=== PATIENT | male | born 1990 | race Caucasian/White ===

== ENCOUNTER 2016-07-11 18:19 | Inpatient (IN) | payer MEDICAID ==
[~2016-07-11] VITALS: Ht 172.7 cm; Wt 108.2 kg
[~2016-07-11 18:19] MED LIST: DIVA500T69 PO; FLUV50 PO; NALT50 PO; PALI234D IM; TRIH2TAB3 PO
[2016-07-11 18:47] VITALS: BP 120/70
[2016-07-11] MEDS ORDERED: PNEUMOCOCCAL VACCINE POLYVALENT 0.5 ML VIAL [PPSV23] IM ONE (19:30)
[2016-07-11] MEDS: DIVALPROEX SODIUM 500 MG ER TABLET PO SCH (20:32)
[2016-07-11] MEDS: OLANZapine 5 MG RAPDIS TABLET PO SCH (20:32)
[2016-07-11] MEDS: TRIHEXYPHENIDYL HCL 2 MG TABLET PO SCH (20:33)
[2016-07-11] MEDS: ZOLPIDEM TARTRATE 10 MG TABLET PO PRN (22:43)
[2016-07-12 06:36] VITALS: BP 104/64
[2016-07-12 08:08] VITALS: BP 144/57
[2016-07-12 08:09] LABS: BASOPHILS % (AUTO) 0.3 % (0.0-2.0); EOSINOPHILS % (AUTO) 5.4 % (1.0-6.0); HEMATOCRIT 41.6 % (41-53); HEMOGLOBIN 13.8 g/dL (13.5-17.5); LYMPHOCYTES # (AUTO) 2.3 K/uL (1.0-4.8); LYMPHOCYTES % (AUTO) 36.6 % (22.0-44.0); MEAN CORPUSCULAR HEMOGLOBIN 28.6 pg (26.0-34.0); MEAN CORPUSCULAR HGB CONC 33.2 G/dL (31.0-37.0); MEAN CORPUSCULAR VOLUME 86 fL (80-100); MONOCYTES # (AUTO) 0.6 K/uL (0.1-1.0); MONOCYTES % (AUTO) 9.6 % (2.0-9.0); NEUTROPHILS # (AUTO) 3.1 K/uL (1.8-7.7); NEUTROPHILS % (AUTO) 48.1 % (40.0-70.0); PLATELET COUNT (AUTO) 190 K/uL (150-450); RED BLOOD CELL COUNT(AUTO) 4.82 MIL/uL (4.50-5.90); RED CELL DISTRIBUTION WIDTH 14.1 % (11.5-14.5); WHITE BLOOD COUNT (AUTO) 6.4 K/uL (4.5-11.0)
[2016-07-12] MEDS: NALTREXONE HCL 50 MG TABLET PO SCH (08:45)
[2016-07-12] MEDS: FluvoxaMINE MALEATE 50 MG TABLET PO SCH (08:45)
[2016-07-12 08:46] LABS: APPEARANCE,URINE CLEAR (CLEAR); GLUCOSE, URINE (UA) NEGATIVE (NEGATIVE); KETONES,URINE NEGATIVE (NEGATIVE); LEUKOCYTE ESTERASE ,URINE NEGATIVE (NEGATIVE); OCCULT BLOOD,URINE NEGATIVE (NEGATIVE); PROTEIN,URINE NEGATIVE (NEGATIVE)
[2016-07-12] MEDS: TERBINAFINE HCL 1% 30 GM CREAM TP SCH ×2 (08:46→17:24)
[2016-07-12] MEDS: TRIHEXYPHENIDYL HCL 2 MG TABLET PO SCH ×3 (08:46→16:34)
[2016-07-12 08:52] LABS: ADD UA MICROSCOPIC NO
[2016-07-12 09:28] LABS: ALANINE AMINOTRANSFERASE 20 U/L (12-78); ALBUMIN 3.2 g/dL (3.4-5.0); ANION GAP 6 mmol/L (8-16); ASPARTATE AMINOTRANSFERASE 8 U/L (15-37); BILIRUBIN,TOTAL 0.2 mg/dL (0.1-1.0); CALCIUM, TOTAL 8.7 mg/dL (8.8-10.5); CARBON DIOXIDE 31 mmol/L (22-29); CHLORIDE 104 mmol/L (98-107); GLOMERULAR FILTR. RATE CALC > 60 mL/min (>60); POTASSIUM 4.2 mmol/L (3.5-5.1); SODIUM SERUM 141 mmol/L (136-145); TOTAL PROTEIN, SERUM 6.4 g/dL (6.4-8.2); UREA NITROGEN, BLOOD 10 mg/dL (7-18); VALPROIC ACID 43 mcg/mL (50-100)
[2016-07-12] MEDS: TraMADol HCL 50 MG TABLET PO PRN (10:30)
[2016-07-12] MEDS ORDERED: MAGNESIUM HYDROXIDE SUSPENSION 30 ML UDCUP PO PRN (11:00)
[2016-07-12] MEDS ORDERED: LOPERAMIDE HCL 2 MG CAPSULE PO PRN (11:00)
[2016-07-12] MEDS ORDERED: PROMETHAZINE HCL 25 MG TABLET PO PRN (11:00)
[2016-07-12] MEDS ORDERED: GuaiFENesin/D-METHORPHAN [SUGAR-FREE] 200-20MG/10 ML SYRUP UDCUP PO PRN (11:00)
[2016-07-12] MEDS ORDERED: MAG HYDROX/AL HYDROX/SIMETH ES 30 ML SUSPENSION UDCUP PO PRN (11:00)
[2016-07-12 16:04] VITALS: BP 131/64
[2016-07-12] MEDS: THIAMINE HCL 100 MG TABLET PO SCH (16:34)
[2016-07-12] MEDS: LORazepam 2 MG TABLET PO PRN ×2 (16:35→20:35)
[2016-07-12] MEDS: OLANZapine 5 MG RAPDIS TABLET PO PRN (16:35)
[2016-07-12] MEDS: OLANZapine 5 MG RAPDIS TABLET PO SCH (20:33)
[2016-07-12] MEDS: DIVALPROEX SODIUM 500 MG ER TABLET PO SCH (20:33)
[2016-07-13 04:00] VITALS: BP 126/69
[2016-07-13] MEDS: TraMADol HCL 50 MG TABLET PO PRN ×4 (06:53→20:13)
[2016-07-13 08:25] VITALS: BP 109/65
[2016-07-13] MEDS: FOLIC ACID 1 MG TABLET PO SCH (09:46)
[2016-07-13] MEDS: THIAMINE HCL 100 MG TABLET PO SCH ×2 (09:46→16:41)
[2016-07-13] MEDS: CHOLECALCIFEROL (VIT D3) 1,000 UNITS TABLET PO SCH (09:46)
[2016-07-13] MEDS: NALTREXONE HCL 50 MG TABLET PO SCH (09:47)
[2016-07-13] MEDS: TRIHEXYPHENIDYL HCL 2 MG TABLET PO SCH ×3 (09:47→16:41)
[2016-07-13] MEDS: MULTIVITAMINS WITH MINERALS, THERAPEUTIC TABLET PO SCH (09:47)
[2016-07-13] MEDS: FluvoxaMINE MALEATE 50 MG TABLET PO SCH (09:48)
[2016-07-13] MEDS: TERBINAFINE HCL 1% 30 GM CREAM TP SCH ×2 (09:48→16:43)
[2016-07-13 16:21] VITALS: BP 120/68
[2016-07-13] MEDS: ACETAMINOPHEN 325 MG TABLET PO PRN (16:41)
[2016-07-13] MEDS: DIVALPROEX SODIUM 500 MG ER TABLET PO SCH (20:09)
[2016-07-13 20:10] VITALS: BP 111/74
[2016-07-13] MEDS: OLANZapine 5 MG RAPDIS TABLET PO SCH (20:12)
[2016-07-14 06:42] VITALS: BP 113/65
[2016-07-14] MEDS: LORazepam 2 MG TABLET PO PRN ×2 (07:02→16:30)
[2016-07-14] MEDS: TraMADol HCL 50 MG TABLET PO PRN (07:03)
[2016-07-14 08:34] VITALS: BP 130/60
[2016-07-14] MEDS: TRIHEXYPHENIDYL HCL 2 MG TABLET PO SCH ×3 (09:57→16:29)
[2016-07-14] MEDS: MULTIVITAMINS WITH MINERALS, THERAPEUTIC TABLET PO SCH (09:57)
[2016-07-14] MEDS: NALTREXONE HCL 50 MG TABLET PO SCH (09:57)
[2016-07-14] MEDS: FOLIC ACID 1 MG TABLET PO SCH (09:57)
[2016-07-14] MEDS: CHOLECALCIFEROL (VIT D3) 1,000 UNITS TABLET PO SCH (09:57)
[2016-07-14] MEDS: TERBINAFINE HCL 1% 30 GM CREAM TP SCH ×2 (09:58→16:30)
[2016-07-14] MEDS: FluvoxaMINE MALEATE 50 MG TABLET PO SCH (09:58)
[2016-07-14] MEDS: THIAMINE HCL 100 MG TABLET PO SCH ×2 (09:58→16:29)
[2016-07-14 16:06] VITALS: BP 121/63
[2016-07-14] MEDS: HydrOXYzine PAMOATE 50 MG CAPSULE PO PRN (16:30)
[2016-07-14] MEDS: OLANZapine 5 MG RAPDIS TABLET PO SCH (20:44)
[2016-07-14] MEDS: DIVALPROEX SODIUM 500 MG ER TABLET PO SCH (20:44)
[2016-07-15 06:46] VITALS: BP 117/76
[2016-07-15] MEDS: TraMADol HCL 50 MG TABLET PO PRN ×2 (07:02→16:52)
[2016-07-15 08:05] VITALS: BP 126/65
[2016-07-15] MEDS: THIAMINE HCL 100 MG TABLET PO SCH ×2 (09:45→16:50)
[2016-07-15] MEDS: TERBINAFINE HCL 1% 30 GM CREAM TP SCH ×2 (09:45→16:50)
[2016-07-15] MEDS: FluvoxaMINE MALEATE 50 MG TABLET PO SCH (09:45)
[2016-07-15] MEDS: MULTIVITAMINS WITH MINERALS, THERAPEUTIC TABLET PO SCH (09:45)
[2016-07-15] MEDS: NALTREXONE HCL 50 MG TABLET PO SCH (09:45)
[2016-07-15] MEDS: CHOLECALCIFEROL (VIT D3) 1,000 UNITS TABLET PO SCH (09:45)
[2016-07-15] MEDS: TRIHEXYPHENIDYL HCL 2 MG TABLET PO SCH ×3 (09:45→16:50)
[2016-07-15] MEDS: FOLIC ACID 1 MG TABLET PO SCH (09:46)
[2016-07-15] MEDS: ACETAMINOPHEN 325 MG TABLET PO PRN (14:15)
[2016-07-15 16:00] VITALS: BP 102/60
[2016-07-15 16:45] VITALS: BP 128/76
[2016-07-15] MEDS: HydrOXYzine PAMOATE 50 MG CAPSULE PO PRN (16:50)
[2016-07-15] MEDS: LORazepam 2 MG TABLET PO PRN (16:51)
[2016-07-15] MEDS: ZOLPIDEM TARTRATE 10 MG TABLET PO PRN (20:30)
[2016-07-15] MEDS: DIVALPROEX SODIUM 500 MG ER TABLET PO SCH (20:30)
[2016-07-15] MEDS: OLANZapine 5 MG RAPDIS TABLET PO SCH (20:30)
[2016-07-16 05:31] VITALS: BP 116/70
[2016-07-16] MEDS: TraMADol HCL 50 MG TABLET PO PRN ×2 (06:06→12:48)
[2016-07-16 08:05] VITALS: BP 150/96
[2016-07-16] MEDS: MULTIVITAMINS WITH MINERALS, THERAPEUTIC TABLET PO SCH (08:30)
[2016-07-16] MEDS: FluvoxaMINE MALEATE 50 MG TABLET PO SCH (08:30)
[2016-07-16] MEDS: NALTREXONE HCL 50 MG TABLET PO SCH (08:30)
[2016-07-16] MEDS: FOLIC ACID 1 MG TABLET PO SCH (08:30)
[2016-07-16] MEDS: TERBINAFINE HCL 1% 30 GM CREAM TP SCH ×2 (08:30→16:44)
[2016-07-16] MEDS: THIAMINE HCL 100 MG TABLET PO SCH ×2 (08:30→16:43)
[2016-07-16] MEDS: TRIHEXYPHENIDYL HCL 2 MG TABLET PO SCH ×3 (08:30→16:44)
[2016-07-16] MEDS: CHOLECALCIFEROL (VIT D3) 1,000 UNITS TABLET PO SCH (08:30)
[2016-07-16] MEDS: OLANZapine 5 MG RAPDIS TABLET PO PRN (08:31)
[2016-07-16] MEDS: HydrOXYzine PAMOATE 50 MG CAPSULE PO PRN ×2 (08:31→16:44)
[2016-07-16 16:20] VITALS: BP 123/70
[2016-07-16] MEDS: LORazepam 2 MG TABLET PO PRN (16:44)
[2016-07-16] MEDS: DIVALPROEX SODIUM 500 MG ER TABLET PO SCH (20:21)
[2016-07-16] MEDS: ZOLPIDEM TARTRATE 10 MG TABLET PO PRN (20:21)
[2016-07-16] MEDS: OLANZapine 5 MG RAPDIS TABLET PO SCH (20:21)
[2016-07-17 01:17] VITALS: BP 132/62
[2016-07-17] MEDS: TraMADol HCL 50 MG TABLET PO PRN (06:31)
[2016-07-17] MEDS: LORazepam 2 MG TABLET PO PRN ×2 (06:31→16:17)
[2016-07-17 08:36] VITALS: BP 119/68
[2016-07-17] MEDS: NALTREXONE HCL 50 MG TABLET PO SCH (09:50)
[2016-07-17] MEDS: CHOLECALCIFEROL (VIT D3) 1,000 UNITS TABLET PO SCH (09:50)
[2016-07-17] MEDS: TERBINAFINE HCL 1% 30 GM CREAM TP SCH ×2 (09:50→16:19)
[2016-07-17] MEDS: HydrOXYzine PAMOATE 50 MG CAPSULE PO PRN (09:51)
[2016-07-17] MEDS: FOLIC ACID 1 MG TABLET PO SCH (09:51)
[2016-07-17] MEDS: FluvoxaMINE MALEATE 50 MG TABLET PO SCH (09:51)
[2016-07-17] MEDS: MULTIVITAMINS WITH MINERALS, THERAPEUTIC TABLET PO SCH (09:51)
[2016-07-17] MEDS: THIAMINE HCL 100 MG TABLET PO SCH ×2 (09:51→16:17)
[2016-07-17] MEDS: TRIHEXYPHENIDYL HCL 2 MG TABLET PO SCH ×3 (09:51→17:02)
[2016-07-17] MEDS: OLANZapine 5 MG RAPDIS TABLET PO PRN (09:51)
[2016-07-17 13:02] VITALS: BP 115/73
[2016-07-17] MEDS: NAPROXEN 500 MG TABLET PO PRN (13:04)
[2016-07-17 14:04] VITALS: BP 111/71
[2016-07-17 16:05] VITALS: BP 110/74
[2016-07-17] MEDS: DIVALPROEX SODIUM 500 MG ER TABLET PO SCH (20:33)
[2016-07-17] MEDS: OLANZapine 5 MG RAPDIS TABLET PO SCH (20:33)
[2016-07-18 01:20] VITALS: BP 108/62
[2016-07-18 08:05] VITALS: BP 104/65
[2016-07-18] MEDS: FluvoxaMINE MALEATE 50 MG TABLET PO SCH (09:21)
[2016-07-18] MEDS: TERBINAFINE HCL 1% 30 GM CREAM TP SCH ×2 (09:21→17:00)
[2016-07-18] MEDS: NALTREXONE HCL 50 MG TABLET PO SCH (09:21)
[2016-07-18] MEDS: CHOLECALCIFEROL (VIT D3) 1,000 UNITS TABLET PO SCH (09:22)
[2016-07-18] MEDS: TRIHEXYPHENIDYL HCL 2 MG TABLET PO SCH ×3 (09:22→17:00)
[2016-07-18] MEDS: MULTIVITAMINS WITH MINERALS, THERAPEUTIC TABLET PO SCH (09:22)
[2016-07-18] MEDS: FOLIC ACID 1 MG TABLET PO SCH (09:22)
[2016-07-18] MEDS: LORazepam 2 MG TABLET PO PRN ×3 (09:22→21:01)
[2016-07-18] MEDS: THIAMINE HCL 100 MG TABLET PO SCH ×2 (09:22→16:57)
[2016-07-18] MEDS: OLANZapine 5 MG RAPDIS TABLET PO PRN (09:22)
[2016-07-18 13:33] VITALS: BP 144/80
[2016-07-18] MEDS: NAPROXEN 500 MG TABLET PO PRN (13:35)
[2016-07-18 14:35] VITALS: BP 135/76
[2016-07-18 16:06] VITALS: BP 135/80
[2016-07-18] MEDS ORDERED: OLANZapine 10 MG RAPDIS TABLET PO SCH (21:00)
[2016-07-18] MEDS: DIVALPROEX SODIUM 500 MG ER TABLET PO SCH (21:00)
[2016-07-18] MEDS: ZOLPIDEM TARTRATE 10 MG TABLET PO PRN (21:01)
[2016-07-19 08:05] VITALS: BP 136/68
[2016-07-19] MEDS ORDERED: FluvoxaMINE MALEATE 50 MG TABLET PO SCH (09:00)
[2016-07-19] MEDS: NALTREXONE HCL 50 MG TABLET PO SCH (09:52)
[2016-07-19] MEDS: TRIHEXYPHENIDYL HCL 2 MG TABLET PO SCH ×3 (09:52→16:33)
[2016-07-19] MEDS: CHOLECALCIFEROL (VIT D3) 1,000 UNITS TABLET PO SCH (09:52)
[2016-07-19] MEDS: FOLIC ACID 1 MG TABLET PO SCH (09:52)
[2016-07-19] MEDS: THIAMINE HCL 100 MG TABLET PO SCH ×2 (09:52→16:33)
[2016-07-19] MEDS: MULTIVITAMINS WITH MINERALS, THERAPEUTIC TABLET PO SCH (09:52)
[2016-07-19] MEDS: NAPROXEN 500 MG TABLET PO PRN (09:53)
[2016-07-19] MEDS: TERBINAFINE HCL 1% 30 GM CREAM TP SCH ×2 (09:54→17:09)
[2016-07-19] MEDS ORDERED: TRIH2TAB3 PO (13:44)
[2016-07-19] MEDS ORDERED: OLAN10TA22 PO (13:44)
[2016-07-19] MEDS ORDERED: NALT50 PO (13:44)
[2016-07-19] MEDS ORDERED: DIVA500T69 PO (13:44)
[2016-07-19] MEDS ORDERED: HALOPERIDOL 5 MG TABLET PO PRN (14:45)
[2016-07-19 16:21] VITALS: BP 126/69
[2016-07-19] MEDS: LORazepam 2 MG TABLET PO PRN ×2 (16:33→20:38)
[2016-07-19] MEDS: DIVALPROEX SODIUM 500 MG ER TABLET PO SCH (20:38)
[2016-07-19] MEDS: ZOLPIDEM TARTRATE 10 MG TABLET PO PRN (20:38)
[2016-07-19] MEDS ORDERED: HALOPERIDOL 10 MG TABLET PO SCH (21:00)
[2016-07-20 06:39] VITALS: BP 147/72
[2016-07-20] MEDS: NAPROXEN 500 MG TABLET PO PRN (06:54)
[2016-07-20 08:05] VITALS: BP 115/63
[2016-07-20] MEDS: NALTREXONE HCL 50 MG TABLET PO SCH (09:10)
[2016-07-20] MEDS: TRIHEXYPHENIDYL HCL 2 MG TABLET PO SCH ×2 (09:10→12:28)
[2016-07-20] MEDS: LORazepam 2 MG TABLET PO PRN (09:10)
[2016-07-20] MEDS: FOLIC ACID 1 MG TABLET PO SCH (09:10)
[2016-07-20] MEDS: MULTIVITAMINS WITH MINERALS, THERAPEUTIC TABLET PO SCH (09:10)
[2016-07-20] MEDS: CHOLECALCIFEROL (VIT D3) 1,000 UNITS TABLET PO SCH (09:10)
[2016-07-20] MEDS: THIAMINE HCL 100 MG TABLET PO SCH (09:10)
[2016-07-20] MEDS: TERBINAFINE HCL 1% 30 GM CREAM TP SCH (09:11)
[2016-07-20] MEDS ORDERED: VITAD1000 PO (09:31)
[2016-07-20] MEDS ORDERED: OLANZapine 5 MG RAPDIS TABLET PO PRN (11:15)
[2016-07-20] MEDS ORDERED: OLANZapine 10 MG RAPDIS TABLET PO SCH (21:00)
== END 2016-07-20 14:40 | disposition home or self-care (01) | DRG 750 ==
LOC: EDSTATUS 18:40 → B3A 19:17
PROVIDERS: ADMIT Psychiatry & Neurology Psychiatry; ATTEND Psychiatry & Neurology Psychiatry
PROC: 3E0234Z Introduction of Serum, Toxoid and Vaccine into Muscle, Percutaneous Approach (ICD-10-PCS; principal; 2016-07-12)
DX: F20.0 Paranoid schizophrenia (principal); R45.851 Suicidal ideations; E55.9 Vitamin D deficiency, unspecified; F17.200 Nicotine dependence, unspecified, uncomplicated; E66.9 Obesity, unspecified; B35.3 Tinea pedis; G89.29 Other chronic pain; M54.5 Low back pain; G47.00 Insomnia, unspecified; Z72.89 Other problems related to lifestyle; Z71.41 Alcohol abuse counseling and surveillance of alcoholic; Z71.6 Tobacco abuse counseling; Z68.36 Body mass index [BMI] 36.0-36.9, adult; Z91.19 Patient's noncompliance with other medical treatment and regimen; Z65.3 Problems related to other legal circumstances; Z23 Encounter for immunization
CPT/HCPCS: 80307; 87081; 90471

== ENCOUNTER 2016-07-23 08:38 | Inpatient (IN) | payer MEDICAID ==
[~2016-07-23] VITALS: Ht 172.7 cm; Wt 108.1 kg
[~2016-07-23 08:38] MED LIST changes: -FLUV50 PO; +OLAN10TA22 PO; -PALI234D IM; +VITAD1000 PO
[2016-07-23 13:07] VITALS: BP 148/86
[2016-07-23] MEDS: TRIHEXYPHENIDYL HCL 2 MG TABLET PO SCH ×2 (13:39→16:44)
[2016-07-23] MEDS: LORazepam 2 MG TABLET PO PRN ×2 (13:40→17:56)
[2016-07-23] MEDS: HALOPERIDOL 5 MG TABLET PO PRN ×2 (13:40→17:56)
[2016-07-23 16:00] VITALS: BP 131/73
[2016-07-23] MEDS: ZOLPIDEM TARTRATE 10 MG TABLET PO PRN (20:37)
[2016-07-23] MEDS: DIVALPROEX SODIUM 500 MG ER TABLET PO SCH (20:37)
[2016-07-23] MEDS ORDERED: HALOPERIDOL 10 MG TABLET PO SCH (21:00)
[2016-07-24 08:05] LABS: BASOPHILS # (AUTO) 0.03 K/uL (0.00-0.20); BASOPHILS % (AUTO) 0.4 % (0.0-2.0); EOSINOPHILS # (AUTO) 0.31 K/uL (0.00-0.70); EOSINOPHILS % (AUTO) 4.13 % (1.0-6.0); HEMATOCRIT 43.2 % (41-53); HEMOGLOBIN 14.1 g/dL (13.5-17.5); LYMPHOCYTES # (AUTO) 2.6 K/uL (1.0-4.8); LYMPHOCYTES % (AUTO) 34.9 % (22.0-44.0); MEAN CORPUSCULAR HEMOGLOBIN 28.2 pg (26.0-34.0); MEAN CORPUSCULAR HGB CONC 32.7 G/dL (31.0-37.0); MEAN CORPUSCULAR VOLUME 86 fL (80-100); MONOCYTES # (AUTO) 0.7 K/uL (0.1-1.0); MONOCYTES % (AUTO) 8.8 % (2.0-9.0); NEUTROPHILS # (AUTO) 3.9 K/uL (1.8-7.7); NEUTROPHILS % (AUTO) 51.8 % (40.0-70.0); PLATELET COUNT (AUTO) 187 K/uL (150-450); RED BLOOD CELL COUNT(AUTO) 5.02 MIL/uL (4.50-5.90); RED CELL DISTRIBUTION WIDTH 14.5 % (11.5-14.5); WHITE BLOOD COUNT (AUTO) 7.5 K/uL (4.5-11.0)
[2016-07-24 08:24] VITALS: BP 119/63
[2016-07-24 08:41] LABS: APPEARANCE,URINE CLEAR (CLEAR); GLUCOSE, URINE (UA) NEGATIVE (NEGATIVE); KETONES,URINE NEGATIVE (NEGATIVE); LEUKOCYTE ESTERASE ,URINE NEGATIVE (NEGATIVE); OCCULT BLOOD,URINE NEGATIVE (NEGATIVE); PROTEIN,URINE NEGATIVE (NEGATIVE)
[2016-07-24 08:43] LABS: ALANINE AMINOTRANSFERASE 40 U/L (12-78); ALBUMIN 3.5 g/dL (3.4-5.0); ANION GAP 9 mmol/L (8-16); ASPARTATE AMINOTRANSFERASE 45 U/L (15-37); BILIRUBIN,TOTAL 0.3 mg/dL (0.1-1.0); CALCIUM, TOTAL 8.6 mg/dL (8.8-10.5); CARBON DIOXIDE 27 mmol/L (22-29); CHLORIDE 104 mmol/L (98-107); CREATININE 0.78 mg/dL (0.60-1.30); GLOMERULAR FILTR. RATE CALC > 60 mL/min (>60); POTASSIUM 4.2 mmol/L (3.5-5.1); SODIUM SERUM 140 mmol/L (136-145); TOTAL PROTEIN, SERUM 7.1 g/dL (6.4-8.2); UREA NITROGEN, BLOOD 17 mg/dL (7-18)
[2016-07-24 08:43] LABS: ADD UA MICROSCOPIC NO
[2016-07-24] MEDS: NALTREXONE HCL 50 MG TABLET PO SCH (09:23)
[2016-07-24] MEDS: TRIHEXYPHENIDYL HCL 2 MG TABLET PO SCH ×3 (09:23→16:46)
[2016-07-24] MEDS: LORazepam 2 MG TABLET PO PRN (09:23)
[2016-07-24] MEDS ORDERED: CloNIDine HCL 0.1 MG TABLET PO PRN (09:30)
[2016-07-24] MEDS ORDERED: ONDANSETRON HCL 4 MG TABLET PO PRN (09:30)
[2016-07-24] MEDS ORDERED: ALBUTEROL SULFATE HFA 90 MCG/PUFF 8 GM INHALER IH PRN (09:30)
[2016-07-24] MEDS ORDERED: BENZOCAINE/MENTHOL LOZENGE MM PRN (09:30)
[2016-07-24] MEDS ORDERED: MAGNESIUM HYDROXIDE SUSPENSION 30 ML UDCUP PO PRN (09:30)
[2016-07-24] MEDS ORDERED: MAG HYDROX/AL HYDROX/SIMETH ES 30 ML SUSPENSION UDCUP PO PRN (09:30)
[2016-07-24] MEDS ORDERED: PETROLATUM,WHITE 71 GM JELLY TP PRN (09:30)
[2016-07-24] MEDS ORDERED: LOPERAMIDE HCL 2 MG CAPSULE PO PRN (09:30)
[2016-07-24] MEDS ORDERED: BACITRACIN 28.4 GM OINTMENT TP PRN (09:30)
[2016-07-24] MEDS: ACETAMINOPHEN 325 MG TABLET PO PRN (13:00)
[2016-07-24 13:01] VITALS: BP 132/77
[2016-07-24 14:00] VITALS: BP 129/71
[2016-07-24 16:09] VITALS: BP 124/65
[2016-07-24] MEDS: DIVALPROEX SODIUM 500 MG ER TABLET PO SCH (20:47)
[2016-07-24] MEDS ORDERED: HALOPERIDOL 10 MG TABLET PO SCH (21:00)
[2016-07-25 07:12] VITALS: BP 126/88
[2016-07-25 08:09] VITALS: BP 127/76
[2016-07-25] MEDS: TRIHEXYPHENIDYL HCL 2 MG TABLET PO SCH ×3 (08:29→16:43)
[2016-07-25] MEDS: NALTREXONE HCL 50 MG TABLET PO SCH (08:29)
[2016-07-25] MEDS: ACETAMINOPHEN 325 MG TABLET PO PRN (08:30)
[2016-07-25 16:41] VITALS: BP 131/82
[2016-07-25] MEDS: LORazepam 2 MG TABLET PO PRN (16:43)
[2016-07-25] MEDS: DIVALPROEX SODIUM 500 MG ER TABLET PO SCH (20:39)
[2016-07-25] MEDS: HALOPERIDOL 10 MG TABLET PO SCH (20:39)
[2016-07-26 07:21] VITALS: BP 132/78
[2016-07-26] MEDS: NALTREXONE HCL 50 MG TABLET PO SCH (08:45)
[2016-07-26] MEDS: TRIHEXYPHENIDYL HCL 2 MG TABLET PO SCH ×3 (08:45→16:15)
[2016-07-26 08:47] VITALS: BP 133/84
[2016-07-26] MEDS: IBUPROFEN 600 MG TABLET PO PRN ×2 (08:53→17:56)
[2016-07-26] MEDS: DICLOFENAC SODIUM 1% 100 GM GEL [2GM] TP SCH ×2 (10:45→16:19)
[2016-07-26 13:15] VITALS: BP 119/72
[2016-07-26] MEDS: TraMADol HCL 50 MG TABLET PO PRN ×2 (13:17→20:23)
[2016-07-26] MEDS ORDERED: NALT50 PO (14:56)
[2016-07-26] MEDS ORDERED: DIVA500T52 PO (14:56)
[2016-07-26] MEDS ORDERED: HALO10 PO (14:56)
[2016-07-26 16:12] VITALS: BP 120/74
[2016-07-26] MEDS: LORazepam 2 MG TABLET PO PRN (16:15)
[2016-07-26 17:56] VITALS: BP 124/77
[2016-07-26 20:23] VITALS: BP 122/75
[2016-07-26] MEDS: HALOPERIDOL 10 MG TABLET PO SCH (20:23)
[2016-07-26] MEDS: DIVALPROEX SODIUM 500 MG ER TABLET PO SCH (20:23)
[2016-07-26] MEDS: ZOLPIDEM TARTRATE 10 MG TABLET PO PRN (21:02)
[2016-07-27 07:03] VITALS: BP 125/68
[2016-07-27] MEDS: TraMADol HCL 50 MG TABLET PO PRN ×2 (07:08→13:04)
[2016-07-27 08:33] VITALS: BP 128/71
[2016-07-27] MEDS: DICLOFENAC SODIUM 1% 100 GM GEL [2GM] TP SCH (08:36)
[2016-07-27] MEDS: NALTREXONE HCL 50 MG TABLET PO SCH (08:36)
[2016-07-27] MEDS: TRIHEXYPHENIDYL HCL 2 MG TABLET PO SCH ×2 (08:36→13:04)
[2016-07-27 13:04] VITALS: BP 125/76
== END 2016-07-27 13:15 | disposition home or self-care (01) | DRG 750 ==
LOC: B3A 12:40
PROVIDERS: ADMIT Psychiatry & Neurology Psychiatry; ATTEND Psychiatry & Neurology Psychiatry
PROC: GZ51ZZZ Individual Psychotherapy, Behavioral (ICD-10-PCS; principal; 2016-07-23)
DX: F20.0 Paranoid schizophrenia (principal); Z91.14 Patient's other noncompliance with medication regimen; E66.9 Obesity, unspecified; F17.210 Nicotine dependence, cigarettes, uncomplicated; G89.29 Other chronic pain; M54.5 Low back pain; Z72.89 Other problems related to lifestyle; Z71.6 Tobacco abuse counseling; Z71.41 Alcohol abuse counseling and surveillance of alcoholic; Z68.36 Body mass index [BMI] 36.0-36.9, adult; F25.0 Schizoaffective disorder, bipolar type
CPT/HCPCS: 80173; 87081

== ENCOUNTER 2016-11-02 18:34 | Inpatient (IN) | payer MEDICAID ==
[~2016-11-02] VITALS: Ht 172.7 cm; Wt 98.4 kg
[~2016-11-02 18:34] MED LIST changes: +DIVA500T52 PO; -DIVA500T69 PO; +HALO10 PO; -OLAN10TA22 PO; -TRIH2TAB3 PO; -VITAD1000 PO
[2016-11-02] MEDS ORDERED: ZOLPIDEM TARTRATE 10 MG TABLET PO PRN (21:15)
[2016-11-02 21:35] VITALS: BP 122/65
[2016-11-02] MEDS: HALOPERIDOL 5 MG TABLET PO PRN (21:45)
[2016-11-02] MEDS: LORazepam 2 MG TABLET PO PRN (21:45)
[2016-11-02 21:54] VITALS: BP 118/68
[2016-11-02 22:12] VITALS: BP 118/68
[2016-11-03 06:08] VITALS: BP 102/67
[2016-11-03 08:04] VITALS: BP 110/70
[2016-11-03 08:57] LABS: BASOPHILS # (AUTO) 0.03 K/uL (0.00-0.20); BASOPHILS % (AUTO) 0.4 % (0.0-2.0); EOSINOPHILS # (AUTO) 0.27 K/uL (0.00-0.70); EOSINOPHILS % (AUTO) 4.19 % (1.0-6.0); HEMATOCRIT 38.7 % (41-53); HEMOGLOBIN 12.7 g/dL (13.5-17.5); LYMPHOCYTES # (AUTO) 2.8 K/uL (1.0-4.8); LYMPHOCYTES % (AUTO) 42.4 % (22.0-44.0); MEAN CORPUSCULAR HEMOGLOBIN 28.6 pg (26.0-34.0); MEAN CORPUSCULAR HGB CONC 32.8 G/dL (31.0-37.0); MEAN CORPUSCULAR VOLUME 87 fL (80-100); MONOCYTES # (AUTO) 0.8 K/uL (0.1-1.0); MONOCYTES % (AUTO) 11.4 % (2.0-9.0); NEUTROPHILS # (AUTO) 2.7 K/uL (1.8-7.7); NEUTROPHILS % (AUTO) 41.5 % (40.0-70.0); PLATELET COUNT (AUTO) 198 K/uL (150-450); RED BLOOD CELL COUNT(AUTO) 4.44 MIL/uL (4.50-5.90); RED CELL DISTRIBUTION WIDTH 13.7 % (11.5-14.5); WHITE BLOOD COUNT (AUTO) 6.5 K/uL (4.5-11.0)
[2016-11-03] MEDS ORDERED: BENZOCAINE/MENTHOL LOZENGE MM PRN (09:00)
[2016-11-03] MEDS ORDERED: ACETAMINOPHEN 325 MG TABLET PO PRN (09:00)
[2016-11-03] MEDS ORDERED: BACITRACIN 28.4 GM OINTMENT TP PRN (09:00)
[2016-11-03] MEDS ORDERED: ALBUTEROL SULFATE HFA 90 MCG/PUFF 8 GM INHALER IH PRN (09:00)
[2016-11-03] MEDS ORDERED: PETROLATUM,WHITE 71 GM JELLY TP PRN (09:00)
[2016-11-03] MEDS ORDERED: MAGNESIUM HYDROXIDE SUSPENSION 30 ML UDCUP PO PRN (09:00)
[2016-11-03] MEDS ORDERED: IBUPROFEN 600 MG TABLET PO PRN (09:00)
[2016-11-03] MEDS ORDERED: LOPERAMIDE HCL 2 MG CAPSULE PO PRN (09:00)
[2016-11-03] MEDS ORDERED: MAG HYDROX/AL HYDROX/SIMETH ES 30 ML SUSPENSION UDCUP PO PRN (09:00)
[2016-11-03] MEDS ORDERED: CloNIDine HCL 0.1 MG TABLET PO PRN (09:00)
[2016-11-03] MEDS ORDERED: ONDANSETRON HCL 4 MG TABLET PO PRN (09:00)
[2016-11-03 09:15] LABS: ALANINE AMINOTRANSFERASE 28 U/L (12-78); ALBUMIN 3.4 g/dL (3.4-5.0); ANION GAP 8 mmol/L (8-16); ASPARTATE AMINOTRANSFERASE 15 U/L (15-37); BILIRUBIN,TOTAL 0.3 mg/dL (0.1-1.0); CALCIUM, TOTAL 8.6 mg/dL (8.8-10.5); CARBON DIOXIDE 30 mmol/L (22-29); CHLORIDE 105 mmol/L (98-107); CREATININE 0.76 mg/dL (0.60-1.30); GLOMERULAR FILTR. RATE CALC > 60 mL/min (>60); POTASSIUM 3.7 mmol/L (3.5-5.1); SODIUM SERUM 143 mmol/L (136-145); TOTAL PROTEIN, SERUM 6.3 g/dL (6.4-8.2); UREA NITROGEN, BLOOD 14 mg/dL (7-18)
[2016-11-03 09:30] LABS: APPEARANCE,URINE TURBID (CLEAR); GLUCOSE, URINE (UA) NEGATIVE (NEGATIVE); KETONES,URINE NEGATIVE (NEGATIVE); LEUKOCYTE ESTERASE ,URINE NEGATIVE (NEGATIVE); OCCULT BLOOD,URINE NEGATIVE (NEGATIVE); PROTEIN,URINE NEGATIVE (NEGATIVE)
[2016-11-03 09:35] LABS: ADD UA MICROSCOPIC NO
[2016-11-03] MEDS ORDERED: DICLOFENAC SODIUM 1% 100 GM GEL [2GM] TP PRN (10:00)
[2016-11-03] MEDS: CHOLECALCIFEROL (VIT D3) 1,000 UNITS TABLET PO SCH (10:13)
[2016-11-03] MEDS: LORazepam 2 MG TABLET PO PRN (10:14)
[2016-11-03] MEDS: HALOPERIDOL 5 MG TABLET PO PRN (10:14)
[2016-11-03 16:00] VITALS: BP 118/68
[2016-11-03] MEDS: HALOPERIDOL 5 MG TABLET PO SCH (17:12)
[2016-11-04 06:13] VITALS: BP 121/67
[2016-11-04 08:04] VITALS: BP 124/57
[2016-11-04] MEDS: CHOLECALCIFEROL (VIT D3) 1,000 UNITS TABLET PO SCH (08:36)
[2016-11-04] MEDS: HALOPERIDOL 5 MG TABLET PO SCH ×2 (08:36→16:52)
[2016-11-04 16:08] VITALS: BP 123/71
[2016-11-04] MEDS: LORazepam 2 MG TABLET PO PRN (16:52)
[2016-11-05 06:41] VITALS: BP 130/66
[2016-11-05 07:30] VITALS: BP 149/110
[2016-11-05] MEDS ORDERED: LORazepam 2 MG/ML VIAL IM ONE (07:40)
[2016-11-05 07:45] VITALS: BP 134/73
[2016-11-05] MEDS ORDERED: LORazepam 2 MG/ML VIAL ONE (07:57)
[2016-11-05 08:00] VITALS: BP 144/105
[2016-11-05] MEDS: HALOPERIDOL 5 MG TABLET PO SCH ×2 (09:00→16:56)
[2016-11-05] MEDS: CHOLECALCIFEROL (VIT D3) 1,000 UNITS TABLET PO SCH (09:00)
[2016-11-05 16:00] VITALS: BP 119/86
[2016-11-05] MEDS: LORazepam 2 MG TABLET PO PRN (16:56)
[2016-11-06 06:10] VITALS: BP 102/68
[2016-11-06 08:38] VITALS: BP 112/76
[2016-11-06] MEDS: CHOLECALCIFEROL (VIT D3) 1,000 UNITS TABLET PO SCH (09:26)
[2016-11-06] MEDS: HALOPERIDOL 5 MG TABLET PO SCH ×2 (09:26→17:05)
[2016-11-06] MEDS: BENZTROPINE MESYLATE 2 MG TABLET PO SCH ×2 (09:26→17:05)
[2016-11-06] MEDS: LORazepam 2 MG TABLET PO PRN ×2 (09:29→17:05)
[2016-11-06 16:32] VITALS: BP 107/64
[2016-11-07 07:01] VITALS: BP 113/58
[2016-11-07 08:04] VITALS: BP 108/67
[2016-11-07] MEDS: LORazepam 2 MG TABLET PO PRN ×2 (09:36→16:52)
[2016-11-07] MEDS: HALOPERIDOL 5 MG TABLET PO SCH ×2 (09:36→16:52)
[2016-11-07] MEDS: BENZTROPINE MESYLATE 2 MG TABLET PO SCH ×2 (09:36→16:52)
[2016-11-07] MEDS: CHOLECALCIFEROL (VIT D3) 1,000 UNITS TABLET PO SCH (09:36)
[2016-11-07] MEDS: FLUoxetine HCL 20 MG CAPSULE PO SCH (09:36)
[2016-11-07 16:00] VITALS: BP 111/70
[2016-11-08 06:10] VITALS: BP 102/61
[2016-11-08 08:14] VITALS: BP 121/68
[2016-11-08] MEDS: CHOLECALCIFEROL (VIT D3) 1,000 UNITS TABLET PO SCH (08:49)
[2016-11-08] MEDS: LORazepam 2 MG TABLET PO PRN ×2 (08:49→16:07)
[2016-11-08] MEDS: FLUoxetine HCL 20 MG CAPSULE PO SCH (08:49)
[2016-11-08] MEDS: BENZTROPINE MESYLATE 2 MG TABLET PO SCH ×2 (08:49→16:06)
[2016-11-08] MEDS: HALOPERIDOL 5 MG TABLET PO SCH ×2 (08:49→16:07)
[2016-11-08 16:00] VITALS: BP 114/71
[2016-11-09 06:06] VITALS: BP 122/75
[2016-11-09 08:04] VITALS: BP 104/62
[2016-11-09] MEDS: FLUoxetine HCL 20 MG CAPSULE PO SCH (08:45)
[2016-11-09] MEDS: HALOPERIDOL 5 MG TABLET PO SCH (08:45)
[2016-11-09] MEDS: CHOLECALCIFEROL (VIT D3) 1,000 UNITS TABLET PO SCH (08:45)
[2016-11-09] MEDS: LORazepam 2 MG TABLET PO PRN (08:45)
[2016-11-09] MEDS: BENZTROPINE MESYLATE 2 MG TABLET PO SCH (08:46)
[2016-11-09] MEDS ORDERED: BENZ2TAB10 PO (10:08)
[2016-11-09] MEDS ORDERED: HALO5 PO (10:08)
[2016-11-09] MEDS ORDERED: FLUO-191 PO (10:08)
== END 2016-11-09 14:14 | disposition home or self-care (01) | DRG 750 ==
LOC: B3A 21:12 → EDSTATUS 21:24
PROVIDERS: ADMIT Psychiatry & Neurology Psychiatry; ATTEND Psychiatry & Neurology Psychiatry
DX: F20.0 Paranoid schizophrenia (principal); F15.20 Other stimulant dependence, uncomplicated; Z59.0 Homelessness; I47.1 Supraventricular tachycardia; E58 Dietary calcium deficiency; M54.5 Low back pain; Z72.0 Tobacco use; G47.00 Insomnia, unspecified; K59.00 Constipation, unspecified; E66.9 Obesity, unspecified; D64.9 Anemia, unspecified; Z68.33 Body mass index [BMI] 33.0-33.9, adult
CPT/HCPCS: J2060

== ENCOUNTER 2017-02-20 12:25 | Inpatient (IN) | payer MEDICAID, OTHER ==
[~2017-02-20] VITALS: Ht 172.7 cm; Wt 96.6 kg
[~2017-02-20 12:25] MED LIST changes: +BENZ2TAB10 PO; +CHOL100034 PO; -DIVA500T52 PO; +FLUO-191 PO; -HALO10 PO; +HALO5 PO; -NALT50 PO
[2017-02-20 12:53] LABS: BASOPHILS # (AUTO) 0.04 K/uL (0.00-0.20); BASOPHILS % (AUTO) 0.5 % (0.0-2.0); EOSINOPHILS # (AUTO) 0.25 K/uL (0.00-0.70); EOSINOPHILS % (AUTO) 3.17 % (1.0-6.0); HEMATOCRIT 44.3 % (41-53); LYMPHOCYTES # (AUTO) 2.6 K/uL (1.0-4.8); LYMPHOCYTES % (AUTO) 32.3 % (22.0-44.0); MEAN CORPUSCULAR HEMOGLOBIN 28.8 pg (26.0-34.0); MEAN CORPUSCULAR HGB CONC 33.8 G/dL (31.0-37.0); MEAN CORPUSCULAR VOLUME 85 fL (80-100); MONOCYTES # (AUTO) 0.7 K/uL (0.1-1.0); MONOCYTES % (AUTO) 8.8 % (2.0-9.0); NEUTROPHILS # (AUTO) 4.4 K/uL (1.8-7.7); NEUTROPHILS % (AUTO) 55.3 % (40.0-70.0); PLATELET COUNT (AUTO) 233 K/uL (150-450); RED CELL DISTRIBUTION WIDTH 13.9 % (11.5-14.5)
[2017-02-20 13:03] LABS: ANION GAP 9 mmol/L (8-16); CALCIUM, TOTAL 8.8 mg/dL (8.8-10.5); CARBON DIOXIDE 31 mmol/L (22-29); CHLORIDE 102 mmol/L (98-107); CREATININE 0.79 mg/dL (0.60-1.30); GLOMERULAR FILTR. RATE CALC > 60 mL/min (>60); POTASSIUM 3.4 mmol/L (3.5-5.1); SODIUM SERUM 142 mmol/L (136-145); UREA NITROGEN, BLOOD 8 mg/dL (7-18)
[2017-02-20 13:09] LABS: ALANINE AMINOTRANSFERASE 35 U/L (12-78); ALBUMIN 3.9 g/dL (3.4-5.0); ASPARTATE AMINOTRANSFERASE 28 U/L (15-37); BILIRUBIN,TOTAL 0.2 mg/dL (0.1-1.0); TOTAL PROTEIN, SERUM 7.6 g/dL (6.4-8.2)
[2017-02-20] MEDS ORDERED: POTASSIUM CHLORIDE 20 MEQ ER TABLET PO ONE (14:45)
[2017-02-20] MEDS ORDERED: HALOPERIDOL 5 MG TABLET PO ONE (17:30)
[2017-02-20] MEDS ORDERED: LORazepam 1 MG TABLET PO ONE (17:30)
[2017-02-20] MEDS ORDERED: HALOPERIDOL 5 MG TABLET PO PRN (18:00)
[2017-02-20] MEDS ORDERED: ZOLPIDEM TARTRATE 10 MG TABLET PO PRN (18:00)
[2017-02-20] MEDS ORDERED: LORazepam 2 MG TABLET PO PRN (18:00)
[2017-02-20] MEDS: BENZTROPINE MESYLATE 2 MG TABLET PO SCH (19:35)
[2017-02-20 19:52] VITALS: BP 112/73
[2017-02-20] MEDS: HALOPERIDOL 10 MG TABLET PO SCH (20:25)
[2017-02-21] MEDS: BENZTROPINE MESYLATE 2 MG TABLET PO SCH ×2 (09:53→16:51)
[2017-02-21] MEDS: CHOLECALCIFEROL (VIT D3) 1,000 UNITS TABLET PO SCH (09:53)
[2017-02-21] MEDS: FLUoxetine HCL 20 MG CAPSULE PO SCH (09:53)
[2017-02-21 09:54] VITALS: BP 111/64
[2017-02-21] MEDS: NICOTINE 7 MG/24 HOUR PATCH TD SCH (09:59)
[2017-02-21] MEDS ORDERED: LOPERAMIDE HCL 2 MG CAPSULE PO PRN (10:15)
[2017-02-21] MEDS ORDERED: BENZOCAINE/MENTHOL LOZENGE [8 LOZENGES/PACKET] MM PRN (10:15)
[2017-02-21] MEDS ORDERED: MAG HYDROX/AL HYDROX/SIMETH ES 30 ML SUSPENSION UDCUP PO PRN (10:15)
[2017-02-21] MEDS ORDERED: ALBUTEROL SULFATE HFA 90 MCG/PUFF 8 GM INHALER IH PRN (10:15)
[2017-02-21] MEDS ORDERED: ONDANSETRON HCL 4 MG TABLET PO PRN (10:15)
[2017-02-21] MEDS ORDERED: PETROLATUM,WHITE 71 GM JELLY TP PRN (10:15)
[2017-02-21] MEDS ORDERED: ACETAMINOPHEN 325 MG TABLET PO PRN (10:15)
[2017-02-21] MEDS ORDERED: IBUPROFEN 600 MG TABLET PO PRN (10:15)
[2017-02-21] MEDS ORDERED: MAGNESIUM HYDROXIDE SUSPENSION 30 ML UDCUP PO PRN (10:15)
[2017-02-21] MEDS ORDERED: CloNIDine HCL 0.1 MG TABLET PO PRN (10:15)
[2017-02-21] MEDS ORDERED: BACITRACIN 28.4 GM OINTMENT TP PRN (10:15)
[2017-02-21 17:23] VITALS: BP 116/82
[2017-02-21] MEDS: HALOPERIDOL 10 MG TABLET PO SCH (20:29)
[2017-02-22 08:05] VITALS: BP 102/63
[2017-02-22] MEDS: BENZTROPINE MESYLATE 2 MG TABLET PO SCH ×2 (08:57→16:56)
[2017-02-22] MEDS: FLUoxetine HCL 20 MG CAPSULE PO SCH (08:57)
[2017-02-22] MEDS: CHOLECALCIFEROL (VIT D3) 1,000 UNITS TABLET PO SCH (08:57)
[2017-02-22] MEDS: NICOTINE 7 MG/24 HOUR PATCH TD SCH (08:58)
[2017-02-22 16:30] VITALS: BP 120/92
[2017-02-22] MEDS: HALOPERIDOL 10 MG TABLET PO SCH (21:36)
[2017-02-23 06:44] LABS: CHOL/HDL RATIO 3.4 (4.2-7.3); THYROID STIMULATING HORMONE 1.5 uIU/mL (0.36-3.74)
[2017-02-23 08:34] VITALS: BP 105/64
[2017-02-23] MEDS: BENZTROPINE MESYLATE 2 MG TABLET PO SCH ×2 (09:15→16:07)
[2017-02-23] MEDS: CHOLECALCIFEROL (VIT D3) 1,000 UNITS TABLET PO SCH (09:15)
[2017-02-23] MEDS: FLUoxetine HCL 20 MG CAPSULE PO SCH (09:15)
[2017-02-23] MEDS: NICOTINE 7 MG/24 HOUR PATCH TD SCH (09:16)
[2017-02-23 16:08] VITALS: BP 138/75
[2017-02-23] MEDS: HALOPERIDOL 10 MG TABLET PO SCH (20:30)
[2017-02-24] MEDS: CHOLECALCIFEROL (VIT D3) 1,000 UNITS TABLET PO SCH (08:55)
[2017-02-24] MEDS: FLUoxetine HCL 20 MG CAPSULE PO SCH (08:55)
[2017-02-24] MEDS: BENZTROPINE MESYLATE 2 MG TABLET PO SCH ×2 (08:55→15:58)
[2017-02-24] MEDS: NICOTINE 7 MG/24 HOUR PATCH TD SCH (08:57)
[2017-02-24 09:09] VITALS: BP 108/73
[2017-02-24 19:29] VITALS: BP 129/72
[2017-02-24] MEDS: HALOPERIDOL 10 MG TABLET PO SCH (20:41)
[2017-02-25 08:00] VITALS: BP 115/70
[2017-02-25] MEDS: CHOLECALCIFEROL (VIT D3) 1,000 UNITS TABLET PO SCH (08:13)
[2017-02-25] MEDS: NICOTINE 7 MG/24 HOUR PATCH TD SCH (08:13)
[2017-02-25] MEDS: BENZTROPINE MESYLATE 2 MG TABLET PO SCH ×2 (08:13→16:27)
[2017-02-25] MEDS: FLUoxetine HCL 20 MG CAPSULE PO SCH (08:13)
[2017-02-25 20:24] VITALS: BP 125/78
[2017-02-25] MEDS: HALOPERIDOL 10 MG TABLET PO SCH (20:39)
[2017-02-26 08:30] VITALS: BP 113/70
[2017-02-26] MEDS: FLUoxetine HCL 20 MG CAPSULE PO SCH (09:55)
[2017-02-26] MEDS: NICOTINE 7 MG/24 HOUR PATCH TD SCH (09:55)
[2017-02-26] MEDS: CHOLECALCIFEROL (VIT D3) 1,000 UNITS TABLET PO SCH (09:55)
[2017-02-26] MEDS: BENZTROPINE MESYLATE 2 MG TABLET PO SCH (09:55)
== END 2017-02-26 12:35 | disposition home or self-care (01) | DRG 750 ==
LOC: EMS 12:26 → 3EI 18:25
PROVIDERS: ADMIT Psychiatry & Neurology Psychiatry; ATTEND Psychiatry & Neurology Psychiatry
DX: F20.0 Paranoid schizophrenia (principal); E55.9 Vitamin D deficiency, unspecified; E66.9 Obesity, unspecified; E87.6 Hypokalemia; F17.200 Nicotine dependence, unspecified, uncomplicated; G47.00 Insomnia, unspecified; M54.5 Low back pain; Z68.32 Body mass index [BMI] 32.0-32.9, adult; Z71.6 Tobacco abuse counseling
CPT/HCPCS: 82306; 84132; 84443; 87081; 99285; G0480